=== PATIENT | female | born 1965 | race Hispanic/Latino ===

== ENCOUNTER 2021-09-17 14:23 | Emergency (ER) | payer SELFPAY | END 2021-09-17 17:03 | disposition home or self-care (01) | LOC: CSHERS 14:23 | DX: M79.671 Pain in right foot (principal); L90.5 Scar conditions and fibrosis of skin | CPT/HCPCS: 36416 ==

== ENCOUNTER 2023-07-08 06:51 | Emergency (ER) | payer SELFPAY ==
[2023-07-08] MEDS ORDERED: Naproxen 500 MG TAB PO SCH (08:00)
== END 2023-07-08 07:54 | disposition home or self-care (01) ==
LOC: CSHERS 06:51
DX: G89.29 Other chronic pain (principal); M25.562 Pain in left knee; M25.561 Pain in right knee
CPT/HCPCS: 99283

== ENCOUNTER 2024-11-02 07:07 | Emergency (ER) | payer BC, SELFPAY ==
[2024-11-02 08:59] LABS: Bilirubin Neg (Negative); Blood, Urine Negative (Negative); Clarity Clear (Clear); Glucose, Urine (Dipstick) Normal (Negative); Ketone, Urine Negative (Negative); Leukocyte Negative (Negative); Nitrite Negative (Negative); Protein, Urine (Dipstick) Negative (Neg-Trace); Urobilinogen Normal mg/dL (Less than 2)
[2024-11-02 09:34] LABS: #Basophils 0.02 10x3/uL (0.0-0.2); #Eosinophils 0.15 10x3/uL (0.0-0.5); #Monocytes 0.53 10x3/uL (0.0-1.1); #Neutrophils 4.58 10x3/uL (1.5-8.4); %Basophils 0.3 % (0.0-2.0); %Eosinophils 2.2 % (0.0-6.0); %Lymphocytes 22.4 % (18.0-47.0); %Monocytes 7.8 % (0.0-10.0); Hemoglobin 12.8 g/dL (12.0-15.5); Mean Corpuscular HGB CONC 34.6 g/dL (32.0-36.0); Mean Corpuscular Hemoglobin 32.6 pg (27.0-33.0); Mean Corpuscular Volume 94.1 fL (81.6-98.3); Mean Platelet Volume 9.7 fL (7.4-10.4); Platelet Count 239 10x3/uL (150-450); RBC Distribution Width 11.9 % (11.5-14.5); Red Blood Cell (RBC) Count 3.93 10x6/uL (3.90-5.03); White Blood Cell (WBC) Count 6.8 10x3/uL (3.5-10.5)
[2024-11-02 09:37] LABS: ALT (SGPT) 17 U/L (8-55); AST (SGOT) 19 U/L (5-34); Albumin 3.8 g/dL (3.5-5.0); Alkaline Phosphatase 84 U/L (40-110); Anion Gap 14 mmol/L (10-20); BUN (Urea Nitrogen) 16 mg/dL (9.8-20.1); Bilirubin, Total 0.9 mg/dL (0.2-1.2); Calc. Creatinine Clearance 0 mL/min (70-130); Calcium 8.8 mg/dL (7.8-10.44); Carbon Dioxide 23 mmol/L (22-29); Chloride 102 mmol/L (98-107); Estimated GFR 99; Globulin 3.1 g/dL (2.4-3.5); Glucose 111 mg/dL (70-105); Potassium 3.9 mmol/L (3.5-5.1); Protein, Total 6.9 g/dL (6.0-8.3); Sodium 135 mmol/L (136-145)
[2024-11-02 09:43] LABS: Bacteria/HPF None Seen HPF (None Seen); CAUTI Indications for Culture Pelvic or flank pain; RBC/HPF 0-3 HPF (0-3); Squamous Epithelial 0-3 HPF (0-3); WBC/HPF None Seen HPF (0-3)
[2024-11-02 09:44] LABS: Urine Culture Reflex No No
== END 2024-11-02 10:50 | disposition home or self-care (01) ==
LOC: CSHERS 07:07
DX: R53.83 Other fatigue (principal); E03.9 Hypothyroidism, unspecified
CPT/HCPCS: 36415; 80053; 81001; 83735; 84439; 84443; 85025; 87428; 93005; 99283

== ENCOUNTER 2025-11-13 08:12 | Emergency (ER) | payer BC | END 2025-11-13 08:58 | disposition home or self-care (01) | LOC: CSHERS 08:12 | DX: J34.0 Abscess, furuncle and carbuncle of nose (principal) | CPT/HCPCS: 99283 ==